=== PATIENT | male | born 1990 | race Caucasian/White ===

== ENCOUNTER 2018-08-12 15:11 | Emergency (ER) | payer OTHER, MEDICARE ==
[~2018-08-12] VITALS: Ht 172.7 cm; Wt 99.3 kg
[2018-08-12 15:26] VITALS: BP 127/79
== END 2018-08-12 15:54 | disposition home or self-care (01) ==
LOC: ED 15:15
DX: S00.01XA Abrasion of scalp, initial encounter (principal); I10 Essential (primary) hypertension; W22.8XXA Striking against or struck by other objects, initial encounter; Y93.89 Activity, other specified; Y92.488 Other paved roadways as the place of occurrence of the external cause; Y99.8 Other external cause status
CPT/HCPCS: 99283

== ENCOUNTER → 2021-05-19 | Outpatient (CLI) | payer MEDICARE | END | disposition home or self-care (01) | LOC: RAD 10:36 | PROVIDERS: ATTEND Nurse Practitioner Family | DX: M41.86 Other forms of scoliosis, lumbar region (principal); M25.552 Pain in left hip | CPT/HCPCS: 72082; 72190 ==